=== PATIENT | female | born 1950 | race Caucasian/White ===

== ENCOUNTER 2018-03-06 09:06 | Outpatient (CLI) | payer BC ==
--- NOTE | 2018-03-06 11:26 | CT ---
CT ABDOMEN AND PELVIS WITH IV AND ORAL CONTRAST: HISTORY: Abdominal pain. Nausea. Diarrhea. COMPARISON: None. FINDINGS: The lung bases are clear. Multiple lobular cysts are present throughout the liver parenchymal. The largest measures up to 4.2 cm, within the left liver lobe. There is no mass effect upon adjacent str uctures or evidence of complication. No biliary obstruction. The spleen, kidneys, adrenal glands, and pancreas have a normal CT appearance. Mild atherosclerosis. Nonenlarged lymph nodes scattered about the retroperitoneum. Very small hiatal hernia. Diverticula arise from the colon without adjacent inflammation. The urinary bladder is unremarkable. IMPRESSION: 1. Diverticulosis. No evidence of diverticulitis. 2. Small hiatal hernia. POS: [facility]
== END 2018-03-06 09:07 | disposition home or self-care (01) ==
LOC: SCSCT 09:06
PROVIDERS: ATTEND Internal Medicine Gastroenterology
DX: K57.30 Diverticulosis of large intestine without perforation or abscess without bleeding (principal); K52.9 Noninfective gastroenteritis and colitis, unspecified; R10.32 Left lower quadrant pain; R63.5 Abnormal weight gain; R14.0 Abdominal distension (gaseous); K44.9 Diaphragmatic hernia without obstruction or gangrene
CPT/HCPCS: 74177

== ENCOUNTER 2019-05-07 10:06 | Outpatient (CLI) | payer BC ==
--- NOTE | 2019-05-07 12:57 | CT ---
CLINICAL HISTORY: Liver mass. TECHNIQUE: Multiple contiguous axial images were obtained and a CT of the abdomen without and with IV contrast. Postcontrast images were obtained in the arterial and portal venous phases. Coronal and sagittal reformats were performed. COMPARISON: 03/06/2018 FINDINGS: Liver: Size: Normal. Contour: Smooth. Mass: Scattered cysts are seen throughout the liver measuring up to 3.5 cm in size. No solid liver ma sses or suspicious areas of enhancement. Gallbladder and biliary system: Normal. No CT evident gallstones. No biliary ductal dilatation. Spleen: Normal. Pancreas: Normal. Kidneys: Normal. Adrenal glands: Normal. GI tract: Scattered diverticula in the colon. Normal appendix. Abdominal aorta and its major branches: Normal. No aneurysm. Peritoneum/retroperitoneum: Normal. No ascites. No adenopathy. Body wall and musculoskeletal: Normal. Visualized lower thorax: Normal. No pulmonary parenchymal mass or pleural effusion. IMPRESSION: 1. Hepatic cyst 2. Diverticulosis
== END 2019-05-07 10:07 | disposition home or self-care (01) ==
LOC: SCSCT 10:06
PROVIDERS: ATTEND Internal Medicine Gastroenterology
DX: R93.3 Abnormal findings on diagnostic imaging of other parts of digestive tract (principal); K76.89 Other specified diseases of liver; K57.30 Diverticulosis of large intestine without perforation or abscess without bleeding
CPT/HCPCS: 74170; 82565

== ENCOUNTER 2023-09-04 16:00 | Outpatient (CLI) | payer MEDICARE | END 2023-09-04 16:01 | LOC: SLEEPLAB 16:00 | PROVIDERS: ATTEND Internal Medicine | DX: G47.33 Obstructive sleep apnea (adult) (pediatric) (principal); R06.83 Snoring | CPT/HCPCS: 95800 ==